=== PATIENT | female | born 1950 ===

== ENCOUNTER 2019-06-06 14:53 | Emergency (ER) | payer MEDICARE, OTHER ==
[2019-06-06 15:22] VITALS: BP 131/54
--- NOTE | 2019-06-06 15:34 | UC ---
Throat Pain/Nasal Ye HPI - HPI Summary HPI Summary: 69 yo with 10 days of nasal and sinus congestion, with non-productive cough x - History of Current Complaint Chief Complaint: UCGeneralIllness Stated Complaint: CONGESTION Time Seen by Provider: 06/06/19 15:28 Hx Obtained From: Patient Hx Last Menstrual Period: n/a Onset/Duration: Gradual Onset, Lasting Days Severity: Worse Since: - past 2 days with increase in cough and upper back pain Pain Intensity: 3 Cough: Nonproductive Associated Signs & Symptoms: Positive: Negative, Sinus Discomfort, Nasal Discharge - Epiglottits Risk Factors Epiglottis Risk Factors: Negative - Allergies/Home Medications Allergies/Adverse Reactions: Allergies Allergy/AdvReac Type Severity Reaction Status Date / Time cephalexin [From Keflex] Allergy Rash Verified 06/06/19 15:22 Penicillins Allergy Rash Verified 06/06/19 15:22 PMH/Surg Hx/FS Hx/Imm Hx - Additional Past Medical History Additional PMH: States hx of lymphedema, but currently decreased and diagnosis is in doubt currently. Morbid obesity. Endocrine History: Dyslipidemia - takes statin GI/ History: Other - history of uterine cancer in the past. - Surgical History Surgical History: Yes Surgery Procedure, Year, and Place: tubal ligation 1990. choley 1990. cataracts 2015 - Family History Known Family History: Positive: Other - no related family history., Non- Contributory - Social History Occupation: Retired Lives: With Family Alcohol Use: Weekly Alcohol Amount: 1 drink a week Substance Use Type: None Smoking Status (MU): Former Smoker Type: Cigarettes When Did the Patient Quit Smoking/Using Tobacco: 4.5 years ago - Immunization History Most Recent Influenza Vaccination: 02/2017 Review of Systems All Other Systems Reviewed And Are Negative: Yes Constitutional: Positive: Chills, Fatigue Skin: Positive: Negative Eyes: Positive: Negative ENT: Positive: Sore Throat, Sinus Congestion, Sinus Pain/Tenderness Respiratory: Positive: Cough. Negative: Shortness Of Breath Cardiovascular: Positive: Negative Gastrointestinal: Positive: Negative Genitourinary: Positive: Negative Motor: Positive: Other - pain in the rhomboid area x 2 days, without shortness of breath. No pain over vertebrae. Musculoskeletal: Positive: Arthralgia, Myalgia Neurological: Positive: Headache - frontal sinus area Psychological: Positive: Negative Is Patient Immunocompromised?: No Physical Exam Triage Information Reviewed: Yes Appearance: Ill-Appearing - looks unwell and fatigued., Obese Vital Signs: Initial Vital Signs Temp 97.9 F 06/06/19 15:17 Pulse 90 06/06/19 15:17 Resp 18 06/06/19 15:17 BP 131/54 06/06/19 15:17 Pulse Ox 96 06/06/19 15:17 Eyes: Positive: Conjunctiva Clear ENT: Positive: Pharyngeal erythema, TMs normal Neck: Positive: Supple, Nontender, No Lymphadenopathy Respiratory: Positive: Lungs clear, Normal breath sounds Cardiovascular: Positive: RRR, No Murmur Musculoskeletal Exam: Other - No tenderness over thoracic vertebrae; tender in rhomboid area. Neurological Exam: Normal Neurological: Positive: Alert, Muscle Tone Normal Psychological Exam: Normal Skin Exam: Normal Throat Pain/Nasal Course/Dx - Course Course Of Treatment: doxycycline for treatment of sinusitis, with tessalon perles added as a cough suppressant as she has found this very effective in the past. - Differential Dx/Diagnosis Differential Diagnosis/HQI/PQRI: Laryngitis, Pharyngitis, Sinusitis, Tonsillitis Provider Diagnosis: Sinusitis Discharge ED - Sign-Out/Discharge Documenting (check all that apply): Patient Departure All imaging exams completed and their final reports reviewed: No Studies - Discharge Plan Condition: Stable Disposition: HOME Prescriptions: Benzonatate CAP* [Tessalon 100 MG CAP*] 200 mg PO TID PRN #30 cap PRN Reason: Cough DOXYcycline CAP(*) [DOXYcycline 100MG CAP(*)] 100 mg PO BID #20 cap Patient Education Materials: Sinusitis (ED) Referrals: Ananth Peña PA [Primary Care Provider] - Additional Instructions: Please take the full dose of antibiotics prescribed for treatment of sinusitis. Continue symptomatic treatment; tessalon perles have been prescribed as a cough suppressant. Follow up if you develop a fever, or if the back pain persists. The back pain is most likely a result of the harsh coughing--continue topical rubs and acetaminophen for control of pain. - Billing Disposition and Condition Condition: STABLE Disposition: Home
== END 2019-06-06 15:54 | disposition home or self-care (01) ==
LOC: UCCORT 14:53
DX: J32.9 Chronic sinusitis, unspecified (principal); M79.10 Myalgia, unspecified site; M54.89 Other dorsalgia; J02.9 Acute pharyngitis, unspecified; R06.02 Shortness of breath; E66.9 Obesity, unspecified; R53.83 Other fatigue; R05 Cough; E78.5 Hyperlipidemia, unspecified; Z79.899 Other long term (current) drug therapy; Z87.891 Personal history of nicotine dependence; Z85.42 Personal history of malignant neoplasm of other parts of uterus; Z88.1 Allergy status to other antibiotic agents; Z88.0 Allergy status to penicillin
CPT/HCPCS: 99212; G0463